=== PATIENT | male | born 1930 | race Caucasian/White ===

== ENCOUNTER 2019-05-16 04:49 | Emergency (ER) | payer OTHER ==
[~2019-05-16] VITALS: Ht 188 cm; Wt 81.6 kg
[2019-05-16] MEDS ORDERED: ELIQUIS5 MG (05:43)
[2019-05-16] MEDS ORDERED: VERELAN120 MG (05:43)
[2019-05-16] MEDS ORDERED: TOPROL XL50 M1 (05:43)
[2019-05-16] MEDS ORDERED: PLAVIX75 MG (05:44)
== END 2019-05-16 10:04 | disposition home or self-care (01) ==
LOC: ER 04:49
DX: J45.998 Other asthma (principal)